=== PATIENT | female | born 1975 | race Caucasian/White ===

== ENCOUNTER 2016-09-30 16:25 | Emergency (ER) | payer MEDICAID, SELFPAY ==
[2016-09-30] MEDS ORDERED: Aspirin 325 mg EC Tablets PO STA (17:02)
[2016-09-30 17:24] LABS: BASO # 0.1 K/uL (0.0-0.2); BASO % 0.7 % (0.0-2.0); EOS # 0.1 K/uL (0.0-0.7); EOS % 1.2 % (0.0-4.0); HEMATOCRIT 37.3 % (34.0-47.0); LYMPH # 2.4 K/uL (1.0-4.3); LYMPH % 31.4 % (20.0-40.0); MEAN CELL VOLUME 85.3 fL (81.0-99.0); MEAN PLATELET VOLUME 9.3 fL (7.2-11.7); MONO # 0.4 K/uL (0.0-0.8); MONO % 5.3 % (0.0-10.0); RED CELL DISTRIBUTION WIDTH 13.2 % (11.5-14.5); WHITE BLOOD COUNT 7.5 K/uL (4.8-10.8)
--- NOTE | 2016-09-30 17:25 | C.PDOC ---
History Of Present Illness Patient is a 41 year old female who presents to the ER with a complaint of chest and breast pain on her left side intermittently for a month. Patient also reports having a lump under her left ribs,pain when she sits up, and nausea. Patient was seen in the ER 3-4 years ago for palpitations, admitted for 2 days. Denies any medical history, family history, use of ETOH, tobacco, or substance abuse. Patient has no PCP. Patient also denies shortness of breath, fever and cough. Time Seen by Provider: 09/30/16 17:01 Chief Complaint (Nursing): Chest Pain History Per: Patient History/Exam Limitations: no limitations Onset/Duration Of Symptoms: Days (Month), Intermittent Episodes Current Symptoms Are (Timing): Still Present Quality: Sharp, Pressure Associated Symptoms: Nausea Past Medical History Reviewed: Historical Data, Nursing Documentation, Vital Signs Vital Signs: Last Vital Signs Temp 97.5 F L 09/30/16 18:56 Pulse 79 09/30/16 18:56 Resp 17 09/30/16 18:56 BP 109/64 09/30/16 18:56 Pulse Ox 98 09/30/16 18:56 - Medical History Other PMH: Palpitations Surgical History: No Surg Hx Family History: States: No Known Family Hx - Social History Hx Tobacco Use: No Hx Alcohol Use: No Hx Substance Use: No - Immunization History Hx Tetanus Toxoid Vaccination: No Hx Influenza Vaccination: No Hx Pneumococcal Vaccination: No Review Of Systems Constitutional: Negative for: Fever, Chills Cardiovascular: Positive for: Chest Pain, Palpitations Respiratory: Negative for: Cough, Shortness of Breath Gastrointestinal: Positive for: Nausea. Negative for: Vomiting, Diarrhea Physical Exam - Physical Exam Appears: Well, Non-toxic Skin: Normal Color, Warm, Dry Head: Atraumatic, Normacephalic Eye(s): bilateral: Normal Inspection, EOMI Ear(s): Bilateral: Normal Nose: Normal Oral Mucosa: Moist Tongue: Normal Appearing Lips: Normal Appearing Teeth: Normal Dentition Throat: Normal Neck: Normal Lymphatic: Deferred Chest: Symmetrical, No Tenderness Cardiovascular: Rhythm Regular, No Murmur Respiratory: Normal Breath Sounds, No Rales, No Rhonchi, No Wheezing Gastrointestinal/Abdominal: Normal Exam, Soft, No Tenderness Back: Normal Inspection Extremity: Normal ROM Neurological/Psych: Oriented x3, Normal Speech, Normal Cognition ED Course And Treatment - Laboratory Results Result Diagrams: 09/30/16 17:11 09/30/16 17:11 O2 Sat by Pulse Oximetry: 100 (room air) Pulse Ox Interpretation: Normal Progress Note: EKG, blood work, chest x-ray, urinalysis, and HCG qualitative test. Aspirin PO administered. Medical Decision Making Medical Decision Making: Initial Impression: Chest pressure for 1 month Initial Plan: Will get EKG, check labs and monitor pt Note: Frequent PVCs seen on rhythm strip Progress Notes: 6:30 PM - Labs are normal. Negative D-Dimer. Pt feels better and looks well. Will d/c home. Disposition Counseled Patient/Family Regarding: Studies Performed, Diagnosis, Need For Followup, Rx Given - Disposition Referrals: [facility] [Outside] [facility] [Outside] Disposition: HOME/ ROUTINE Disposition Time: 18:35 Condition: STABLE Additional Instructions: Gael, thank you for letting us take care of you today. Return to the ER if your symptoms worsen, or if any problems. Take the medication listed below as prescribed. It is important that you follow up at our [facility]. Call the phone number listed below to make an appointment. (If you need to see a bindery supervisor, they will arrange for this.) If you have any trouble making the appointment, call the [facility] at the phone number listed below. Prescriptions: Ranitidine HCl [Zantac] 1 tab PO BID #40 tablet Instructions: Chest Pain (ED) Forms: General Discharge Instructions Print Language: TELUGU - POA Present On Arrival: None - Clinical Impression Clinical Impression: Chest pain - Scribe Statement The provider has reviewed the documentation as recorded by the Scribe Provider Attestation: Jeffry Sánchez All medical record entries made by the Scribe were at my direction and personally dictated by me. I have reviewed the chart and agree that the record accurately reflects my personal performance of the history, physical exam, medical decision making, and the department course for this patient. I have also personally directed, reviewed, and agree with the discharge instructions and disposition.
[2016-09-30 17:48] LABS: RBC URINE 3 /hpf (0-3); URINE BACTERIA RARE (<OCC); URINE BILIRUBIN NEGATIVE (NEGATIVE); URINE BLOOD NEGATIVE (NEGATIVE); URINE COLOR Yellow (YELLOW); URINE GLUCOSE (UA) NORMAL (Normal); URINE KETONE TRACE mg/dL (NEGATIVE); URINE LEUKOCYTE ESTERASE NEG Leu/uL (Negative); URINE PROTEIN NEGATIVE (NEGATIVE); URINE UROBILINOGEN NORMAL mg/dL (0.2-1.0); WBC URINE 3 /hpf (0-5)
[2016-09-30 18:10] LABS: CHLORIDE 98 mmol/L (98-107); POTASSIUM 3.8 mmol/L (3.6-5.2); SODIUM 139 mmol/L (132-148)
[2016-09-30 18:13] LABS: ALB/GLOB RATIO 1.5 (1.0-2.1); ALKALINE PHOSPHATASE 56 U/L (38-126); ALT/SGPT 21 U/L (9-52); AST/SGOT 20 U/L (14-36); BILIRUBIN,TOTAL 0.7 mg/dL (0.2-1.3); BLOOD UREA NITROGEN 15 mg/dL (7-17); CARBON DIOXIDE 28 mmol/L (22-30); GFR AFRICAN-AMERICAN > 60; GLUCOSE,RANDOM 106 mg/dL (65-105); TOTAL PROTEIN 7.6 g/dL (6.3-8.3)
[2016-09-30 18:14] LABS: CALCIUM 8.8 mg/dl (8.6-10.4)
--- NOTE | 2016-09-30 18:49 | RAD ---
HISTORY: chest pain COMPARISON: None available. TECHNIQUE: Chest, one view. FINDINGS: LUNGS: No focal consolidation. Please note that chest x-ray has limited sensitivity for the detection of pulmonary masses. PLEURA: No significant pleural effusion identified. No definite pneumothorax . CARDIOVASCULAR: The cardiomediastinal silhouette appears within normal limits of size. OSSEOUS STRUCTURES: No acute osseous abnormality identified. VISUALIZED UPPER ABDOMEN: Unremarkable. OTHER FINDINGS: None. IMPRESSION: No focal consolidation, significant pleural effusion, or definite pneumothorax identified.
[2016-09-30 18:56] VITALS: BP 109/64; PULSE 79; RESP 17; TEMP 97.5
--- NOTE | 2016-10-04 12:27 | CARD ---
APPROVED REPORT EKG Measurement Heart [id number] <Conclusion> Normal sinus rhythm Normal ECG
[2016-10-06 18:01] VITALS: O2SAT 100
== END 2016-09-30 19:00 | disposition home or self-care (01) ==
LOC: C.ER 16:25
DX: R07.9 Chest pain, unspecified (principal)